=== PATIENT | female | born 1935 | race Caucasian/White ===

== ENCOUNTER 2021-07-29 18:59 | Emergency (ER) | payer MEDICARE, OTHER ==
--- NOTE | 2021-07-29 19:24 | EDM.PDOC ---
ED HPI GENERAL MEDICAL PROBLEM - General Chief Complaint: Laceration Stated Complaint: FELL AND INJURED RIGHT SIDE/LACERATION FOREHEAD Time Seen by Provider: 07/29/21 19:23 Source of Information: Reports: Patient, Family (daughter), RN Notes Reviewed History Limitations: Reports: No Limitations - History of Present Illness INITIAL COMMENTS - FREE TEXT/NARRATIVE: Patient is an 85-year-old female who presents to the ER with her daughter for the evaluation of a head laceration. The patient tripped over a concrete lip, that was not painted or marked very well at all. She states that she fell, striking the right side of her lateral eye orbit, just above the eyebrow on a boot scraper. This particular scraper did have some rust on the outside metal. This resulted in about a 2 cm linear laceration to the lateral portion of the patient's right eye orbit just above the eyebrow. Patient is able to move her face in all range of motion without difficulty, bleeding is under control. She is not on any blood thinners. There is quite a bit of bruising about the injury site as well as well as the lateral side of her left orbit. The daughter states that the patient is acting normal per herself. She is not having any headaches, or any sort of worsening blurred vision or double vision. Patient also is complaining of some right-sided lateral chest pain however she states is more of a dull achy pain, and think she may have strained a muscle. Patient denies any other sick-like symptoms, fever/chills, cough/shortness of breath, nausea/vomiting/diarrhea. - Related Data Allergies Allergy/AdvReac Type Severity Reaction Status Date / Time No Known Allergies Allergy Verified 07/29/21 19:18 Home Meds: Home Meds Aspirin [Halfprin] 81 mg PO DAILY 07/29/21 [History] Levothyroxine [Synthroid] 0 mg PO DAILY 07/29/21 [History] Past Medical History Endocrine/Metabolic History: Reports: Hypothyroidism Social & Family History - Tobacco Use Tobacco Use Status *Q: Never Tobacco User Second Hand Smoke Exposure: No - Recreational Drug Use Recreational Drug Use: No ED ROS GENERAL - Review of Systems Review Of Systems: Comprehensive ROS is negative, except as noted in HPI. ED EXAM, SKIN/RASH Exam: See Below Exam Limited By: No Limitations General Appearance: Alert, WD/WN, No Apparent Distress Eye Exam: Bilateral Eye: EOMI, Periorbital Changes, PERRL Ears: Normal External Exam, Normal Canal, Hearing Grossly Normal, Normal TMs Head: Normocephalic Respiratory/Chest: No Respiratory Distress, Lungs Clear, Normal Breath Sounds, No Accessory Muscle Use, Chest Non-Tender Cardiovascular: Normal Peripheral Pulses, Regular Rate, Rhythm, No Edema Extremities: Normal Inspection, Normal Capillary Refill Neurological: Alert, Oriented, Normal Cognition, No Motor/Sensory Deficits Psychiatric: Normal Affect, Normal Mood Skin: Warm, Dry, Normal Color, No Rash, Ecchymosis (There is slight ecchymosis noted to the area of laceration, as well as the patient's left lateral eye orbit.), Wound/Incision (2 cm linear laceration to the right lateral eye orbit, just above the eyebrow. ) ED SKIN PROCEDURES - Laceration/Wound Repair Right Lateral Brow Appearance: Subcutaneous, Linear, Clean Distal NVT: Neuro & Vascular Intact, No Tendon Injury Anesthetic Type: Local Local Anesthesia - Lidocaine (Xylocaine): 1% with EPI Local Anesthetic Volume: 4cc Skin Prep: Chlorhexidine (Hibiciens), Saline Exploration/Debridement/Repair: Wound Explored, In a Bloodless Field, Explored to Base, No Foreign Material Found Closed with: Sutures Lac/Wound length In cm: 2 Suture Size: 4-0 # of Sutures: 5 Suture Type: Prolene, Interrupted, Simple Sterile Dressing Applied: Nurse Tetanus Status Addressed: Yes (updated at today's visit) Complications: No Course - Vital Signs Last Recorded V/S: Last Vital Signs Temp 98 F 07/29/21 19:15 Pulse 84 07/29/21 19:15 Resp 16 07/29/21 19:15 BP 154/89 H 07/29/21 19:15 Pulse Ox 94 L 07/29/21 19:15 - Orders/Labs/Meds Orders: Active Orders 24 hr Category Date Time Status Vaccine to be Administered/Admin Charge [RC] ASDIRECTED Care 07/29/21 19:33 Ordered Chest wo Cont [CT] Stat Exams 07/29/21 19:58 Ordered Head wo Cont [CT] Stat Exams 07/29/21 19:32 Ordered Meds: Medications Discontinued Medications Generic Name Dose Route Start Last Admin Trade Name Freq PRN Reason Stop Dose Admin Diphtheria/Tetanus/Acell Pertussis 0.5 ml 07/29/21 19:32 07/29/21 19:40 Diphtheria,Pertussis(Acell),Tetanus Vaccine 0.5 Ml Syringe IM 07/29/21 19:33 0.5 ml .ONCE ONE Administration Lidocaine/Epinephrine 10 ml 07/29/21 19:32 Lidocaine 1% With Epinephrine 1:100,000 10 Ml Mdv INJECT 07/29/21 19:33 ONETIME ONE - Re-Assessments/Exams Free Text/Narrative Re-Assessment/Exam: 07/29/21 19:36 Patient presents to the ER for the evaluation of her head injury after a fall. We will go ahead and get a head CT for evaluation. The wound will need to be sutured closed. And we will do so after head CT has been obtained. 07/29/21 21:[address] shows no sign of any acute intracranial abnormality. Patient was having a little bit more chest discomfort on her right side where she fell after the head CT was performed, so we will go ahead and perform a chest CT without contrast for further evaluation for the possibility of any sort of rib fractures versus contusion to the chest wall. 07/29/21 21:[address] demonstrates no acute rib fractures. There was a small pulmonary nodule, that can be followed by CT in a year if needed. Departure - Departure Time of Disposition: 19:37 Disposition: Home, Self-Care 01 Condition: Good Clinical Impression: Facial laceration Qualifiers: Encounter type: initial encounter Qualified Code(s): S01.81XA - Laceration without foreign body of other part of head, initial encounter - Discharge Information *PRESCRIPTION DRUG MONITORING PROGRAM REVIEWED*: No *COPY OF PRESCRIPTION DRUG MONITORING REPORT IN PATIENT FLORENCIO: No Instructions: Sutures, [place], or Adhesive Wound Closure, [id number] Referrals: PCP,Not In Area [Primary Care Provider] - Forms: ED Department Discharge Care Plan Goals: You have been evaluated in the ED for your laceration. Sutures will need to stay in for 7-10 days. You may return to the ED or any clinic for removal. Your head CT and chest CT showed no sign of any acute fractures or bleeds. There was a single pulmonary nodule noted on your chest CT, it is 3 mm. Following guidelines for nodules less than 6 mm require no immediate follow-up (none minimal risk or absent history of smoking and other known risk factors), but the possibility of an optional CT at 12 months time for high risk (history of smoking, or other known risk factors) Please keep this area clean and dry, you may cleanse with regular soap and water. No vigorous scrubbing. Please try to avoid submerging the affected area in water for prolonged periods of time until the sutures are removed. Watch out for signs of infection like increased redness, swelling, pain at the laceration site, or if you should develop any fevers or chills. Please return to ED if your symptoms change or worsen. Sepsis Event Note (ED) - Evaluation Sepsis Screening Result: No Definite Risk - Focused Exam Vital Signs: Vital Signs Temp Pulse Resp BP Pulse Ox 07/29/21 19:15 98 F 84 16 154/89 H 94 L - My Orders Last 24 Hours: My Active Orders 07/29/21 19:32 Head wo Cont [CT] Stat 07/29/21 19:33 Vaccine to be Administered/Admin Charge [RC] ASDIRECTED 07/29/21 19:58 Chest wo Cont [CT] Stat - Assessment/Plan Last 24 Hours: My Active Orders 07/29/21 19:32 Head wo Cont [CT] Stat 07/29/21 19:33 Vaccine to be Administered/Admin Charge [RC] ASDIRECTED 07/29/21 19:58 Chest wo Cont [CT] Stat
[2021-07-29] MEDS ORDERED: Diphtheria,Pertussis(Acell),Tetanus Vaccine 0.5 ML Syringe IM ONE (19:32)
[2021-07-29] MEDS ORDERED: Lidocaine 1% with EPINEPHrine 1:100,000 10 ML MDV INJECT ONE (19:32)
--- NOTE | 2021-07-30 07:16 | CT ---
Head CT Technique: Multiple axial sections through the brain were obtained. Intravenous contrast was not utilized. Reconstructed coronal and sagittal images were obtained. Comparison: No prior intracranial imaging is available. Findings: Ventricles along with basal cisterns and sulci over the convexities are within normal limits for the patient's age. Scattered areas of diminished density are noted within the periventricular and subcortical white matter which is compatible with mild small vessel ischemic demyelination change. No other abnormal parenchymal densities are seen. No evidence of intracranial hemorrhage is seen. No midline shift or mass-effect is seen. Bone window settings were reviewed. No acute calvarial abnormality is seen. Visualized mastoid sinuses and paranasal sinuses show nothing acute. Impression: 1. Mild senescent change as described above. 2. Nothing acute is appreciated on noncontrast head CT study. Diagnostic code #2 I agree with preliminary report from [facility], finalized on 07/29/21, 9:10 PM CDT, code 1
--- NOTE | 2021-07-30 07:19 | CT ---
CT chest Technique: Multiple axial sections through the chest were obtained. Intravenous contrast was not utilized. Reconstructed coronal and sagittal images were obtained. Comparison: No prior chest imaging is available. Findings: Thoracic aorta shows atherosclerotic change. Ascending aorta shows ectasia with AP dimension of 3.7 cm. Mediastinum shows no adenopathy. Mild coronary artery calcification is seen. No pericardial thickening is noted. Surgical material is seen along the diaphragm within the upper left abdomen presumably representing old surgery. Minimal nodule is noted within the left lung base measuring approximately 3 mm. Slight density within the left and right lung bases are seen most likely due to atelectasis. No acute parenchymal change is otherwise seen. Bone window settings were reviewed which show several old left-sided rib fractures. No acute osseous abnormality is appreciated. Impression: 1. Small 3 mm nodule within the left lung base. Workup at this time is somewhat questionable given the patient's age. Follow-up could be obtained in one year which would be a noncontrast exam if clinically needed. 2. Old left-sided rib fractures. Other nonacute findings as noted above. 3. No definite acute abnormality is appreciated. Diagnostic code #3 I agree with preliminary report from [facility], finalized on 07/29/21, 10:04 PM CDT, code 1
== END 2021-07-29 21:55 | disposition home or self-care (01) ==
LOC: JD.ED 18:59
DX: S01.111A Laceration without foreign body of right eyelid and periocular area, initial encounter (principal); E03.9 Hypothyroidism, unspecified; Z79.899 Other long term (current) drug therapy; Z79.82 Long term (current) use of aspirin; Z23 Encounter for immunization; W18.09XA Striking against other object with subsequent fall, initial encounter
CPT/HCPCS: 12011; 70450; 70450-26; 71250; 71250-26; 90471; 90715; 99283-25